=== PATIENT | male | born 1980 | race Caucasian/White ===

== ENCOUNTER → 2016-07-25 | Outpatient (CLI) | payer BC ==
[2016-07-25 14:49] LABS: HEMATOCRIT. 43.3 % (42.0-52.0); HEMOGLOBIN. 14.7 g/dL (14.0-18.0); MEAN CORPUSCULAR VOLUME 94.1 fL (80.0-94.0); RED CELL DISTRIBUTION WIDTH 13.3 % (11.6-14.6)
[2016-07-25 15:08] LABS: CLARITY URINE CLEAR (CLEAR); COLOR URINE YELLOW (YELLOW); GLUCOSE URINE NEGATIVE (NEGATIVE); KETONES URINE NEGATIVE (NEGATIVE); LEUKOCYTE ESTERASE URINE NEGATIVE (NEGATIVE); NITRITE URINE NEGATIVE (NEGATIVE); OCCULT BLOOD URINE NEGATIVE (NEGATIVE); PROTEIN URINE NEGATIVE (NEGATIVE); SPECIFIC GRAVITY URINE 1.021 (1.005-1.030)
[2016-07-25 15:11] LABS: CARBON DIOXIDE 30 mEq/L (21-32); CHLORIDE 103 mEq/L (98-107); HDL CHOLESTEROL 65 mg/dL (40-59); LDL CHOLESTEROL 73 mg/dL (5-100)
[2016-07-27 09:10] LABS: VITAMIN D 25-OH 25.7 ng/mL (30.0-100.0)
[2016-07-27 13:11] LABS: PROSTATE SPECIFIC AG TOTAL 1.5 ng/mL (0.0-4.0)
[2016-07-27 14:14] LABS: % FREE PSA 17.3 % (.); PSA FREE 0.26 ng/mL
== END | disposition home or self-care (01) ==
LOC: LAB 14:08
PROVIDERS: ATTEND Family Medicine Adult Medicine
DX: E56.8 Deficiency of other vitamins (principal); R53.83 Other fatigue; R10.9 Unspecified abdominal pain; R05 Cough; R35.1 Nocturia; R35.0 Frequency of micturition
CPT/HCPCS: 36415; 71020; 80048; 80061; 80076; 81003; 82306; 84153; 84154; 84443; 85025; 86677; 87086

== ENCOUNTER → 2018-11-28 | Outpatient (CLI) | payer BC ==
[2018-11-28 11:51] LABS: BASOPHILS % 0.3 % (0.0-2.0); EOSINOPHILS % 0.7 % (0.0-5.0); HEMATOCRIT. 45.1 % (42.0-52.0); HEMOGLOBIN. 15.2 g/dL (14.0-18.0); LYMPHOCYTES % 35.9 % (20.0-50.0); MEAN CORPUSCULAR HEMOGLOBIN 32.8 pg (28.0-32.0); MEAN CORPUSCULAR VOLUME 97.4 fL (80.0-94.0); MEAN PLATELET VOLUME 11.1 fl (7.4-10.4); MONOCYTES % 8.6 % (2.0-8.0); NEUTROPHILS % 54.5 % (40.0-76.0); PLATELET 131 x1000/uL (130-400); RED BLOOD CELL COUNT 4.63 mill/uL (4.7-6.1); RED CELL DISTRIBUTION WIDTH 13.4 % (11.6-14.6)
[2018-11-28 12:02] LABS: CLARITY URINE CLEAR (CLEAR); COLOR URINE YELLOW (YELLOW); KETONES URINE NEGATIVE (NEGATIVE); LEUKOCYTE ESTERASE URINE TRACE (NEGATIVE); NITRITE URINE NEGATIVE (NEGATIVE); OCCULT BLOOD URINE NEGATIVE (NEGATIVE); PH URINE 5.5 (4.5-8.0); PROTEIN URINE NEGATIVE (NEGATIVE); SPECIFIC GRAVITY URINE 1.006 (1.005-1.030); UROBILINOGEN URINE 0.2 E.U./dL (0.2-1.0)
[2018-11-28 12:23] LABS: CHLORIDE 106 mEq/L (98-107)
[2018-11-28 12:28] LABS: LDL CHOLESTEROL 69 mg/dL (5-100)
[2018-11-28 12:31] LABS: HDL CHOLESTEROL 72 mg/dL (40-59)
== END | disposition home or self-care (01) ==
LOC: RAD 10:00
PROVIDERS: ATTEND Family Medicine Adult Medicine
DX: Z00.01 Encounter for general adult medical examination with abnormal findings (principal); R53.83 Other fatigue; E78.2 Mixed hyperlipidemia; D64.9 Anemia, unspecified; R35.1 Nocturia; E55.9 Vitamin D deficiency, unspecified; R53.1 Weakness; Z87.891 Personal history of nicotine dependence
CPT/HCPCS: 36415; 71046; 71250; 80061; 81003; 82306; 84443

== ENCOUNTER 2019-07-20 12:02 | Emergency (ER) | payer BC ==
[~2019-07-20] VITALS: Ht 177.8 cm; Wt 65.0 kg
[2019-07-20] MEDS ORDERED: ASPIRIN 81MG TABLET PO ONE (13:00)
[2019-07-20 13:09] LABS: BASOPHILS % 0.3 % (0.0-2.0); EOSINOPHILS % 0.6 % (0.0-5.0); HEMATOCRIT. 42.6 % (42.0-52.0); HEMOGLOBIN. 14.6 g/dL (14.0-18.0); LYMPHOCYTES % 28.6 % (20.0-50.0); MEAN CORPUSCULAR HEMOGLOBIN 33.3 pg (28.0-32.0); MEAN PLATELET VOLUME 11.2 fl (7.4-10.4); MONOCYTES % 10.1 % (2.0-8.0); NEUTROPHILS % 60.4 % (40.0-76.0); PLATELET 142 x1000/uL (130-400); RED BLOOD CELL COUNT 4.39 mill/uL (4.7-6.1); RED CELL DISTRIBUTION WIDTH 13.9 % (11.6-14.6)
[2019-07-20 13:14] LABS: CHLORIDE 107 mEq/L (98-107)
[2019-07-20 13:23] LABS: D-DIMER < 0.19 mg/L FEU (<0.50); PARTIAL THROMBOPLASTIN TIME 25.1 sec (23.4-31.0); PROTHROMBIN TIME 10.9 sec (9.6-11.0)
[2019-07-20 17:17] VITALS: BP 115/74
== END 2019-07-20 17:29 | disposition home or self-care (01) ==
LOC: ER 12:02
DX: R07.89 Other chest pain (principal); R42 Dizziness and giddiness; Z03.818 Encounter for observation for suspected exposure to other biological agents ruled out
CPT/HCPCS: 36415; 71045; 80053; 83880; 84484; 85025; 85379; 85610; 85730; 93005; 99285; U0003; Z7610

== ENCOUNTER → 2019-07-30 | Outpatient (CLI) | payer BC ==
[2019-07-30 16:04] LABS: CHLORIDE 106 mEq/L (98-107)
== END | disposition home or self-care (01) ==
LOC: LAB 15:34
PROVIDERS: ATTEND Family Medicine Adult Medicine
DX: R07.9 Chest pain, unspecified (principal)
CPT/HCPCS: 36415; 80048

== ENCOUNTER → 2019-08-04 | Day surgery (SDC) | payer BC ==
[~2019-08-04] MED LIST: METOPROLOL TARTRATE 5MG/5ML VIAL IV ONE; METOPROLOL TARTRATE 5MG/5ML VIAL IV SCH; NITROGLYCERIN SPRAY/4.9GM CAN TL PRN
== END | disposition home or self-care (01) ==
LOC: RAD 07-31 13:10 → EDSTATUS 07-31 15:41 → CT 11:38
PROVIDERS: ATTEND Internal Medicine Cardiovascular Disease
DX: R93.1 Abnormal findings on diagnostic imaging of heart and coronary circulation (principal); R07.9 Chest pain, unspecified; Z13.6 Encounter for screening for cardiovascular disorders
CPT/HCPCS: 75571; J3490